=== PATIENT | female | born 1995 | race Caucasian/White ===

== ENCOUNTER 2016-11-29 09:47 | Emergency (ER) | payer OTHER ==
[~2016-11-29] VITALS: Ht 157.5 cm; Wt 83.9 kg
[~2016-11-29 09:47] MED LIST: AUGMENTIN 875 M1 TAB PO; BACTRIM DS 8001 TAB PO; BIOTIN1000 MCG PO; ESTRING0.0075 MG/ VG; FIORICET 325 MG1 TAB PO; FLONASE120 SPRAY/; MUCINEX FAST-M177 M3 PO; OMEPRAZOLE D/R20 MG PO; ORTHO TRI-CYCLE1 TA2 PO; PEPCID 20MG TAB20 MG PO; PREDNISONE 20MG20 MG PO; ROBITUSSIN COU237 ML PO; YAZ 3 MG-0.02 M1 TAB PO; ZITHROMAX Z-PA250 M1 PO; ZOFRAN 4 MG TABL4 MG PO
--- NOTE | 2016-11-29 10:57 | ED GI/GU/ABDOMINAL COMPLAINT ---
History of Present Illness General Chief Complaint: Nausea, Vomiting, Diarrhea Stated Complaint: VOMITING Source: patient Exam Limitations: no limitations Vital Signs & Intake/Output Vital Signs & Intake/Output Vital Signs Date Time Temp Pulse Resp B/P Pulse O2 O2 Flow FiO2 Ox Delivery Rate 11/29 1143 98 Room Air 11/29 1001 97.6 95 16 123/85 99 Room Air Allergies Coded Allergies: NO KNOWN ALLERGIES (05/20/11) Reconcile Medications Dicyclomine Hydrochloride (Bentyl) 10 MG CAPSULE 1 CAP PO TID PRN SPASM ETHINYL ESTRADIOL/DROSPIRENONE (Aletha 28 Tablet) 1 TAB TAB 1 TAB PO DAILY CONTROL (Reported) Ondansetron (Zofran Odt) 4 MG TAB.RAPDIS 1 TAB PO Q6 PRN NAUSEA Pantoprazole Sodium (Protonix) 40 MG TABLET. 1 TAB PO DAILY GERD Triage Note: PT STATES SHE HAS BEEN VOMITING SINCE 0400. PT REPORTS SHE WAS DRINKING ETOH LAST NIGHT. Triage Nurses Notes Reviewed? yes ? N Is pt currently ? No Onset: Abrupt Duration: hour(s): (several) Timing: multiple episodes today Quality/Severity: severe Severity Numbers: 10 Location: epigastric Modifying Factors: Worsens With: eating. Associated Symptoms: abdominal pain, nausea/vomiting HPI: 21 year old female who presents for chief complaint of vomiting since 4 am. Patient admits to drinking alcohol last night , several mixed drinks. SHe states that she usually doesn't vomiting after alcohol. She thought that maybe she was getting "the bug". No fever or chills. No diarrhea. Past History Travel History Traveled to [place] past 21 day No Medical History Any Pertinent Medical History? see below for history Neurological: migraine EENT: sinusitis, tonsil infections, TONCILS REMOVED BILAT EYE LID SURGERY Cardiovascular: NONE Respiratory: NONE Gastrointestinal: GERD Hepatic: NONE Renal: NONE Musculoskeletal: NONE Psychiatric: NONE Endocrine: NONE Surgical History Surgical History: cholecystectomy, TONSILLECTOMY Psychosocial History What is your primary language Welsh Tobacco Use: Never used ETOH Use: occasional use Illicit Drug Use: denies illicit drug use Family History Hx Contributory? No Review of Systems Review of Systems Constitutional: Denies: chills, fever. EENTM: Reports: no symptoms. Respiratory: Denies: cough, short of breath. Cardiovascular: Denies: chest pain, palpitations. GI: Reports: abdominal pain, nausea, vomiting. Genitourinary: Denies: discharge, dysuria. Musculoskeletal: Denies: back pain. Skin: Reports: no symptoms. Neurological/Psychological: Reports: no symptoms. Hematologic/Endocrine: Denies: bruising, bleeding, polyuria, polydipsia. Immunologic/Allergic: Denies: splenectomy. All Other Systems: Reviewed and Negative Physical Exam Physical Exam General Appearance: well developed/nourished, alert, awake, mild distress Head: atraumatic, normal appearance Eyes: Bilateral: normal appearance, PERRL, EOMI. Ears, Nose, Throat, Mouth: hearing grossly normal, moist mucous membrane Neck: normal inspection, supple, full range of motion Respiratory: normal breath sounds, chest non-tender, no respiratory distress Cardiovascular: regular rate/rhythm Peripheral Pulses: 2+ radial (R), 2+ radial (L) Gastrointestinal: normal bowel sounds, soft, tenderness (EPIGASTRIC) Back: normal inspection, normal range of motion Extremities: normal range of motion Neurologic/Psych: no motor/sensory deficits, awake, alert, oriented x 3 Skin: intact, normal color, warm/dry Core Measures ACS in differential dx? No Severe Sepsis Present: No Septic Shock Present: No Progress Differential Diagnosis: pancreatitis, PUD/GERD, perforated viscous, SBO, ALCOHOL POISONING, GASTROENTERITIS Plan of Care: Orders Procedure Date/time Status URINALYSIS 11/29 1102 Complete LIPASE 11/29 1102 Complete HUMAN BETA HCG SCREEN 11/29 1102 Complete COMPREHENSIVE METABOLIC PANEL 11/29 1102 Complete CBC WITHOUT DIFFERENTIAL 11/29 1102 Complete Laboratory Tests 11/29/16 1120: Anion Gap 14, Estimated GFR > 60, BUN/Creatinine Ratio 18.6, Glucose 106 H, Calcium 9.2, Total Bilirubin 0.8, AST 19, ALT 29, Alkaline Phosphatase 58, Total Protein 7.5, Albumin 4.3, Globulin 3.2, Albumin/Globulin Ratio 1.3, Lipase 71, Total Beta HCG NEGATIVE, CBC w Diff MAN DIFF ORDERED, RBC 5.29, MCV 88.6, MCH 29.7, RDW 13.3, MPV 8.1, Gran % 92.5 H, Lymphocytes % 3.9 L, Monocytes % 3.4, Eosinophils % 0.1, Basophils % 0.1, Absolute Granulocytes 14.8 H, Segmented Neutrophils 90 H, Band Neutrophils 5, Absolute Lymphocytes 0.6 L, Lymphocytes 3 L, Monocytes 2, Absolute Monocytes 0.6, Absolute Eosinophils 0, Absolute Basophils 0, Platelet Estimate VERIFIED BY SMEAR, Normocytic RBCs VERIFIED, Normochromic RBCs VERIFIED, PUBS MCHC 33.5 11/29/16 1102: Urine Color YEL, Urine Clarity CLEAR, Urine pH 6.0, Ur Specific [place] 1.025, Urine Protein NEG, Urine Ketones NEG, Urine Nitrite NEG, Urine Bilirubin NEG, Urine Urobilinogen 0.2, Ur Leukocyte Esterase NEG, Ur Microscopic SEDIMENT EXAMINED, Urine RBC 1-3, Urine WBC RARE, Ur Epithelial Cells FEW, Urine Mucus RARE, Urine Hemoglobin TRACE-LYSED, Urine Glucose NEG LABS, SALINE, ZOFRAN, PROTONIX ORDERED. STILL NAUSEATED. MORPHINE, PHENERGEN ORDERED. 3:51 PM PATIENT FEELING BETTER AFTER IV PHENERGEN. WILL ENCOURAGE PO CHALLENGE. (RYAN GLEASON,AMITA) Initial ED EKG: none Departure Departure Time of Disposition: 1628 Disposition: HOME OR SELF CARE Condition: Stable Clinical Impression Primary Impression: Gastritis Referrals: HARSHIL GLEASON,[place] (PCP/Family) Referred to [facility] as new patient No Additional Instructions: Take the Zofran and Protonix as directed. Take Bentyl as needed for spasm. Click clear liquid diet only today. Advance as tolerated. Do not take any alcohol for the next few days. Follow-up with her doctor in the office. Return as needed. Departure Forms: Customer Survey General Discharge Information Prescriptions: Current Visit Scripts Ondansetron (Zofran Odt) 1 TAB PO Q6 PRN NAUSEA #20 TAB Pantoprazole Sodium (Protonix) 1 TAB PO DAILY #14 TAB Dicyclomine Hydrochloride (Bentyl) 1 CAP PO TID PRN SPASM #20 CAP
[2016-11-29 11:45] LABS: ABSOLUTE BASOPHIL COUNT 0 /CUMM (0.0-0.2); ABSOLUTE EOSINOPHIL COUNT 0 /CUMM (0.0-0.7); ABSOLUTE GRANULOCYTE CT 14.8 /CUMM (1.4-6.5); ABSOLUTE LYMPH COUNT 0.6 /CUMM (1.2-3.4); ABSOLUTE MONOCYTE COUNT 0.6 /CUMM (0.10-0.60); BASOPHIL % 0.1 % (0.0-2.0); EOSINOPHIL % 0.1 % (0-5); HEMATOCRIT 46.9 % (37-47); MEAN CORPUSCULAR HGB 29.7 PG (27.0-31.0); MEAN CORPUSCULAR HGB CONC 33.5 G/DL (33.0-37.0); MEAN CORPUSCULAR VOLUME 88.6 FL (81.0-99.0); MEAN PLATELET VOLUME 8.1 FL (7.4-10.4); PLATELET COUNT 334 /CUMM (130-400); RBC DISTRIBUTION WIDTH 13.3 % (11.5-14.5); RED BLOOD CELL CT 5.29 /CUMM (4.20-5.40)
[2016-11-29 11:49] LABS: GRANULOCYTE % 92.5 % (42.2-75.2)
[2016-11-29] MEDS ORDERED: BENTYL10 M1 PO (16:30)
[2016-11-29] MEDS ORDERED: PROTONIX40 M3 PO (16:30)
[2016-11-29] MEDS ORDERED: ZOFRAN ODT4 M1 PO (16:30)
[2016-11-29 16:39] VITALS: BP 100/57
== END 2016-11-29 16:40 ==
LOC: ERH 09:47
PROVIDERS: Emergency Medicine
DX: K29.70 Gastritis, unspecified, without bleeding (principal)
CPT/HCPCS: 81001; 96361; 96374; 96375; J1885; J2405; J2550